=== PATIENT | male | born 1955 | race Caucasian/White ===

== ENCOUNTER 2024-11-01 18:52 | Emergency (ER) | payer MEDICARE ==
[2024-11-01] MEDS: Ketorolac 30 MG/ML SDV IM ONE (20:19)
== END 2024-11-01 20:57 | disposition home or self-care (01) ==
LOC: JP.ED 18:52
DX: M62.830 Muscle spasm of back (principal); Z79.899 Other long term (current) drug therapy
CPT/HCPCS: 96372; 99284; A9270; J1885